=== PATIENT | male | born 1990 | race Caucasian/White ===

== ENCOUNTER 2017-01-03 18:07 | Emergency (ER) | payer OTHER ==
[~2017-01-03] VITALS: Ht 175.3 cm; Wt 79.4 kg
[~2017-01-03 18:07] MED LIST: NO HOME MEDS; RINGWORM14.2 GM TP
[2017-01-03 19:57] LABS: ADD MIUA? YES; BILIRUBIN NEGATIVE; BLOOD MODERATE; COLOR YELLOW ((YELLOW)); GLUCOSE (STRIP) NEGATIVE; KETONES 5; LEUKOCYTES NEGATIVE; NITRITE NEGATIVE; PROTEIN (STRIP) NEGATIVE; SPECIFIC GRAVITY 1.026 (1.000-1.030); UROBILINOGEN 0.2 MG/DL (0.2-1.0)
[2017-01-03 20:06] LABS: BACTERIA NONE SEEN /HPF; EPITHELIAL CELLS RARE /HPF; MUCUS TRACE /LPF; RED BLOOD CELLS 0-5 /HPF (0-5); UCUL ADDED? NO; WHITE BLOOD CELLS 0-5 /HPF (0-5)
[2017-01-03 20:32] LABS: HEMATOCRIT 48.3 % (38.0-50.0); MCH 29.8 PG (29.0-34.0); MCHC 34.8 G/DL (30.0-36.0); MCV 85.8 FL (86-99); MEAN PLAT.VOLUME 9.2 uM^3 (9.0-12.4); PLATELET COUNT 333 K/uL (156-360); RBC DIS.WIDTH-CV 12.2 % (11.8-14.6); RBC DIS.WIDTH-SD 38.4 % (39-53); RED BLOOD COUNT 5.63 M/uL (4.00-5.50); WHITE BLOOD COUNT 14.6 K/uL (4.1-10.2)
[2017-01-03 20:44] LABS: CHLORIDE 107 mEq/L (99-109); POTASSIUM 4.2 mEq/L (3.7-5.4); SODIUM 139 mEq/L (136-147)
[2017-01-03 20:46] LABS: GLUCOSE 95 mg/dL (70-99)
[2017-01-03 20:47] LABS: ANION GAP 12 MEQ/L (2-14)
[2017-01-03 20:48] LABS: TOTAL BILIRUBIN 0.2 mg/dL (0.0-1.0)
[2017-01-03 20:49] LABS: ALKALINE PHOSPHATASE 94 IU/L (3-129)
[2017-01-03 20:50] LABS: GFR ESTIMATE (CALCULATED) > 59 mL/min/
[2017-01-03 20:51] LABS: UREA NITROGEN (BUN) 17 mg/dL (9-23)
[2017-01-03] MEDS ORDERED: CLEOCIN300 MG PO (22:23)
[2017-01-03] MEDS ORDERED: NORCO 5/3251 TABLET PO (22:23)
[2017-01-03 23:27] VITALS: BP 136/88
== END 2017-01-03 23:28 | disposition home or self-care (01) ==
LOC: EME 18:07
PROVIDERS: Physician Assistant
DX: N49.2 Inflammatory disorders of scrotum (principal); F17.200 Nicotine dependence, unspecified, uncomplicated
CPT/HCPCS: 72193; 76870; 80053; 81003; 85027; 99281; 99284; J1885; J7030